=== PATIENT | female | born 1950 ===

== ENCOUNTER 2020-12-17 15:28 | Inpatient (IN) ==
[2020-12-17 16:50] LABS: Basophils # 0.1 10*3/uL (0.0-0.2); Basophils % 0.4 % (0.0-0.8); Eosinophils # 0.1 10*3/uL (0.0-0.87); Eosinophils % 0.8 % (0.00-10.9); Hematocrit 38.8 VOL% (35.7-47.0); Hemoglobin 12.5 GM/DL (12.0-16.0); Immature Granulocytes % 0.4 %; Immature Granulocytes Absolute 0.05 #; Lymphocytes # 2.4 10*3/uL (1.4-4.0); Lymphocytes % 20.8 % (21.3-54.2); Mean Corpuscular HGB Conc 32.2 GM/DL (32-36); Mean Corpuscular Volume 95.8 FL (87-102); Mean Platelet Volume 9.6 FL (9.6-12.0); Monocytes % 4.3 % (1.7-12.7); Neutrophils % 73.3 % (38.7-73.9); Platelet Count 417 T/CUMM (130-400); Red Blood Count 4.05 MC/CUMM (3.8-5.5); White Blood Count 11.5 T/CUMM (4-12)
[2020-12-17 16:56] LABS: Calcium 9.5 MG/DL (8.5-10.1); Osmolality,Calculated 276.5 MOS/KG (273-304)
[2020-12-17] MEDS ORDERED: ACETAMINOPHEN 325 MG TABLET PO PRN (16:57)
[2020-12-17] MEDS ORDERED: hydrALAZINE 20 MG/1 ML VIAL IV PRN (16:57)
[2020-12-17] MEDS ORDERED: ONDANSETRON 4 MG/2 ML VIAL IV PRN ×2 (16:57→18:50)
[2020-12-17] MEDS ORDERED: DEXTROSE 50% 25 GM/50 ML VIAL IV PRN (16:57)
[2020-12-17] MEDS ORDERED: DOCUSATE SODIUM 100 MG CAPSULE PO PRN (16:57)
[2020-12-17] MEDS ORDERED: GLUCAGON 1 MG VIAL IM PRN (16:57)
[2020-12-17 17:02] LABS: PT Patient Result 10.9 SECS (9.8-11.9)
[2020-12-17] MEDS ORDERED: fentaNYL 100 MCG/2 ML VIAL ONE (17:09)
[2020-12-17] MEDS ORDERED: LIDOCAINE 2% 5 ML VIAL ONE (17:09)
[2020-12-17] MEDS ORDERED: propofoL 200 MG/20 ML VIAL IV ONE (17:09)
[2020-12-17] MEDS ORDERED: ROCURONIUM 50 MG/5 ML VIAL IV ONE (17:09)
[2020-12-17] MEDS ORDERED: SEVOFLURANE 1 UNIT/15 MINUTE INH ONE ×3 (17:09→18:21)
[2020-12-17] MEDS ORDERED: MIDAZOLAM 2 MG/2 ML VIAL ONE (17:09)
[2020-12-17] MEDS ORDERED: ONDANSETRON 4 MG/2 ML VIAL ONE (17:09)
[2020-12-17] MEDS ORDERED: GENTAMICIN 80 MG/2 ML VIAL ONE (17:13)
[2020-12-17] MEDS ORDERED: ceFAZolin 1,000 MG VIAL ONE (17:39)
[2020-12-17] MEDS ORDERED: NEOSTIGMINE 10 MG/10 ML VIAL ONE (18:21)
[2020-12-17] MEDS ORDERED: LACTATED RINGERS 1,000 ML IV ONE (18:21)
[2020-12-17] MEDS ORDERED: GLYCOPYRROLATE 0.4 MG/2 ML VIAL ONE (18:21)
[2020-12-17] MEDS ORDERED: SODIUM CHLORIDE 0.9% 100 ML IV ONE (18:22)
[2020-12-17] MEDS ORDERED: HYDROmorphone 2 MG/1 ML VIAL ONE (18:48)
[2020-12-17] MEDS: HYDROmorphone 2 MG/1 ML VIAL IV PRN ×4 (18:50→19:05)
[2020-12-17] MEDS: ALBUTEROL 2.5 MG/3 ML NEB RESP TX SCH (20:22)
[2020-12-17] MEDS: PIPERACILLIN/TAZOBACTAM 3,375 MG in SODIUM CHLORIDE 0.9% 100 ML IV SCH (20:59)
[2020-12-18] MEDS: ALBUTEROL 2.5 MG/3 ML NEB RESP TX SCH ×4 (01:02→20:00)
[2020-12-18 05:35] LABS: Basophils % 0.3 % (0.0-0.8); Eosinophils # 0.1 10*3/uL (0.0-0.87); Eosinophils % 0.8 % (0.00-10.9); Hematocrit 32.6 VOL% (35.7-47.0); Hemoglobin 10.6 GM/DL (12.0-16.0); Immature Granulocytes % 0.3 %; Immature Granulocytes Absolute 0.03 #; Lymphocytes # 2.4 10*3/uL (1.4-4.0); Lymphocytes % 26.3 % (21.3-54.2); Mean Corpuscular HGB Conc 32.5 GM/DL (32-36); Mean Corpuscular Volume 96.2 FL (87-102); Mean Platelet Volume 9.5 FL (9.6-12.0); Monocytes % 5.1 % (1.7-12.7); Neutrophils % 67.2 % (38.7-73.9); Platelet Count 316 T/CUMM (130-400); Red Blood Count 3.39 MC/CUMM (3.8-5.5); Red Cell Distribution Width 13.1 % (9.3-17.3)
[2020-12-18 05:59] LABS: Calcium 8.5 MG/DL (8.5-10.1); Osmolality,Calculated 278.3 MOS/KG (273-304); Potassium 3.6 MMOL/L (3.5-5.1); Risk Ratio 2.7; Thyroid Stimulating Hormone 1.18 uIU/ml (0.358-3.74)
[2020-12-18] MEDS: PIPERACILLIN/TAZOBACTAM 3,375 MG in SODIUM CHLORIDE 0.9% 100 ML IV SCH ×3 (06:05→21:23)
[2020-12-18] MEDS: PANTOPRAZOLE 40 MG TABLET PO SCH (09:32)
[2020-12-18] MEDS: NICOTINE 21 MG/24 HR PATCH TRANSDERM SCH (09:38)
[2020-12-18] MEDS: MORPHINE 4 MG/1 ML VIAL IV PRN (13:25)
[2020-12-19] MEDS: MORPHINE 4 MG/1 ML VIAL IV PRN (00:01)
[2020-12-19] MEDS: ALBUTEROL 2.5 MG/3 ML NEB RESP TX SCH ×4 (00:47→19:09)
[2020-12-19] MEDS: PIPERACILLIN/TAZOBACTAM 3,375 MG in SODIUM CHLORIDE 0.9% 100 ML IV SCH ×2 (05:03→12:44)
[2020-12-19 05:46] LABS: Basophils % 0.5 % (0.0-0.8); Eosinophils # 0.1 10*3/uL (0.0-0.87); Eosinophils % 1.5 % (0.00-10.9); Hematocrit 30.3 VOL% (35.7-47.0); Immature Granulocytes % 0.3 %; Immature Granulocytes Absolute 0.03 #; Lymphocytes # 2.5 10*3/uL (1.4-4.0); Lymphocytes % 29.5 % (21.3-54.2); Mean Corpuscular Volume 94.4 FL (87-102); Mean Platelet Volume 9.3 FL (9.6-12.0); Monocytes % 6.3 % (1.7-12.7); Neutrophils % 61.9 % (38.7-73.9); Platelet Count 304 T/CUMM (130-400); Red Blood Count 3.21 MC/CUMM (3.8-5.5); Red Cell Distribution Width 12.9 % (9.3-17.3); White Blood Count 8.6 T/CUMM (4-12)
[2020-12-19 06:40] LABS: Bilirubin,Urine Negative (Negative); Blood, Urine Negative (Negative); Glucose,Urine (UA) Negative (Negative); Ketones,Urine Negative (Negative); Mucus,Urine Occasional /LPF (Occasional); Nitrite,Urine Negative (Negative); Protein,Urine Negative; RBC,Urine 2 /HPF (0-4); Squamous Epithelial Cell,Urine Occasional /HPF (0-10); Urine Appearance CLEAR (Clear); Urine Color Straw (Yellow); Urine Specific Gravity 1.012 (1.001-1.035); Urine Urobilinogen < 2.0 EU/DL (0.2-1.0); WBC,Urine <1 /HPF (0-6)
[2020-12-19 06:49] LABS: Barbiturates Screen,Urine Negative (Negative); Benzodiazepines Screen,Urine Positive (Negative); Cannabinoid Screen,Urine Positive (Negative); Opiate Screen,Urine Positive (Negative); Phencyclidine Screen,Urine Negative (Negative)
[2020-12-19 07:08] LABS: Calcium 8.2 MG/DL (8.5-10.1); Osmolality,Calculated 281.1 MOS/KG (273-304); Potassium 3.6 MMOL/L (3.5-5.1)
[2020-12-19] MEDS: PANTOPRAZOLE 40 MG TABLET PO SCH (09:21)
[2020-12-19] MEDS: NICOTINE 21 MG/24 HR PATCH TRANSDERM SCH (09:28)
[2020-12-19] MEDS: amLODIPine 5 MG TABLET PO SCH (21:03)
[2020-12-19] MEDS: SIMVASTATIN 10 MG TABLET PO SCH (21:03)
[2020-12-20] MEDS: ALBUTEROL 2.5 MG/3 ML NEB RESP TX SCH ×4 (00:54→19:22)
[2020-12-20] MEDS: PIPERACILLIN/TAZOBACTAM 3,375 MG in SODIUM CHLORIDE 0.9% 100 ML IV SCH ×2 (01:45→10:21)
[2020-12-20 05:40] LABS: Basophils % 0.4 % (0.0-0.8); Eosinophils # 0.2 10*3/uL (0.0-0.87); Eosinophils % 1.5 % (0.00-10.9); Hematocrit 33.8 VOL% (35.7-47.0); Hemoglobin 11.1 GM/DL (12.0-16.0); Immature Granulocytes % 0.6 %; Immature Granulocytes Absolute 0.06 #; Lymphocytes # 2.3 10*3/uL (1.4-4.0); Lymphocytes % 23.2 % (21.3-54.2); Mean Corpuscular HGB Conc 32.8 GM/DL (32-36); Mean Corpuscular Volume 93.4 FL (87-102); Mean Platelet Volume 9.5 FL (9.6-12.0); Monocytes % 5.3 % (1.7-12.7); Platelet Count 338 T/CUMM (130-400); Red Blood Count 3.62 MC/CUMM (3.8-5.5); Red Cell Distribution Width 12.9 % (9.3-17.3); White Blood Count 10.1 T/CUMM (4-12)
[2020-12-20 05:58] LABS: Calcium 9.3 MG/DL (8.5-10.1); Osmolality,Calculated 276.4 MOS/KG (273-304)
[2020-12-20] MEDS: amLODIPine 5 MG TABLET PO SCH (08:49)
[2020-12-20] MEDS: POTASSIUM CHLORIDE 20 MEQ TABLET PO PRN ×4 (08:49→14:16)
[2020-12-20] MEDS: PANTOPRAZOLE 40 MG TABLET PO SCH (08:49)
[2020-12-20] MEDS: NICOTINE 21 MG/24 HR PATCH TRANSDERM SCH (08:50)
[2020-12-20] MEDS ORDERED: INFLUENZA VIRUS VACCINE 0.5 ML SYRINGE IM ONE (10:45)
[2020-12-20] MEDS ORDERED: POTASSIUM CHLORIDE 20 MEQ TABLET PO ONE (15:00)
[2020-12-20] MEDS: SIMVASTATIN 10 MG TABLET PO SCH (22:02)
[2020-12-21] MEDS: guaiFENesin/DM ER 600-30 MG TABLET PO PRN ×2 (00:42→09:03)
[2020-12-21] MEDS: ALBUTEROL 2.5 MG/3 ML NEB RESP TX SCH ×2 (00:44→07:10)
[2020-12-21 05:05] LABS: Basophils % 0.4 % (0.0-0.8); Eosinophils # 0.2 10*3/uL (0.0-0.87); Eosinophils % 1.9 % (0.00-10.9); Hematocrit 36.9 VOL% (35.7-47.0); Hemoglobin 12.5 GM/DL (12.0-16.0); Immature Granulocytes % 0.4 %; Immature Granulocytes Absolute 0.04 #; Lymphocytes # 2.2 10*3/uL (1.4-4.0); Lymphocytes % 22.5 % (21.3-54.2); Mean Corpuscular HGB Conc 33.9 GM/DL (32-36); Mean Corpuscular Volume 92.9 FL (87-102); Mean Platelet Volume 9.2 FL (9.6-12.0); Monocytes % 4.1 % (1.7-12.7); Neutrophils % 70.7 % (38.7-73.9); Platelet Count 369 T/CUMM (130-400); Red Blood Count 3.97 MC/CUMM (3.8-5.5); Red Cell Distribution Width 13.1 % (9.3-17.3); White Blood Count 9.7 T/CUMM (4-12)
[2020-12-21 05:30] LABS: Calcium 9.5 MG/DL (8.5-10.1); Potassium 3.9 MMOL/L (3.5-5.1)
[2020-12-21] MEDS: amLODIPine 5 MG TABLET PO SCH (08:58)
[2020-12-21] MEDS: PANTOPRAZOLE 40 MG TABLET PO SCH (08:58)
[2020-12-21] MEDS: NICOTINE 21 MG/24 HR PATCH TRANSDERM SCH (09:41)
[2020-12-21 15:55] VITALS: BP 122/71
== END 2020-12-21 19:12 | disposition home or self-care (01) | DRG 502 ==
LOC: N.ED 15:28 → N.EDINP 16:57 → SUATTDRO 16:57 → N.EDINP 17:20 → N.3E 20:17
PROVIDERS: ADMIT Internal Medicine; ATTEND Hospitalist